=== PATIENT | female | born 1985 | race Hispanic/Latino ===

== ENCOUNTER 2017-12-23 16:44 | Emergency (ER) | payer BC, OTHER ==
[2017-12-23 17:01] VITALS: BP 121/65; PULSE 83; RESP 16; TEMP 98.2; O2SAT 98
--- NOTE | 2017-12-23 17:52 | RAD ---
PROCEDURE: Right Foot Radiographs. HISTORY: FOOT PAIN COMPARISON: None. FINDINGS: BONES: No acute fracture or destructive bony lesion identified. JOINTS: Normal. SOFT TISSUES: Normal. OTHER FINDINGS: None. IMPRESSION: No acute fracture or dislocation right foot.
--- NOTE | 2017-12-23 18:15 | ED PDOC ---
Lower Extremity Pain/Injury Time Seen by Provider: 12/23/17 17:07 Chief Complaint (Nursing): Lower Extremity Problem/Injury Chief Complaint (Provider): Right foot pain History Per: Patient History/Exam Limitations: no limitations Onset/Duration Of Symptoms: Days Current Symptoms Are (Timing): Still Present Additional Complaint(s): 32 y/o female presents to the ED for right foot pain. Patient reports back in August 2017 she was diagnosed with a stress fracture. She was training for a marathon when the injury occurred. After treating the injury she states she hasn 't had any symptoms until a few days ago while running on a treadmill. She reports feeling a sharp pain to the outside of the right foot, the same location as the previous stress fracture. Patient states it is a 4/10 when she bears weight on it. Denies any trauma, swelling, calf pain, SOB, chest pain, fever, chills, nausea, vomiting, or abdominal pain. Of note, she also complains of a slight sore throat and cough since this morning. Patient took no medications prior to arrival in ED. 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 PMD: unsure, in [place] LMP: 12/02/2017 Past Medical History Reviewed: Historical Data, Nursing Documentation, Vital Signs Vital Signs: Last Vital Signs Temp 98.2 F 12/23/17 16:57 Pulse 83 12/23/17 16:57 Resp 16 12/23/17 16:57 BP 121/65 12/23/17 16:57 Pulse Ox 98 12/23/17 16:57 - Medical History PMH: No Chronic Diseases - Surgical History Surgical History: No Surg Hx - Family History Family History: States: No Known Family Hx - Social History Current smoker - smoking cessation education provided: No Ex-Smoker (has not smoked in the last 12 months): No Alcohol: Social Drugs: Denies - Home Medications Home Medications: Ambulatory Orders Medication Instructions Recorded Naproxen 500 mg PO BID #20 tab 12/23/17 - Allergies Allergies/Adverse Reactions: Allergies Allergy/AdvReac Type Severity Reaction Status Date / Time No Known Allergies Allergy Verified 12/23/17 16:57 Review of Systems ROS Statement: Except As Marked, All Systems Reviewed And Found Negative Constitutional: Negative for: Fever, Chills ENT: Positive for: Throat Pain. Negative for: Ear Pain Cardiovascular: Negative for: Chest Pain Respiratory: Positive for: Cough Gastrointestinal: Negative for: Nausea, Vomiting, Abdominal Pain Musculoskeletal: Positive for: Foot Pain (right). Negative for: Other (no swelling) Physical Exam - Reviewed Nursing Documentation Reviewed: Yes Vital Signs Reviewed: Yes - Physical Exam Comments: GENERAL APPEARANCE: Patient is awake, alert, oriented x 3, in no acute distress. Resting comfortably. SKIN: Warm, dry; (-) cyanosis. NECK: Supple, FROM ENMT: Mucous membranes moist. Airway patent: (-) stridor. Pharynx: clear, uvula is midline (-) swelling, (+) mild erythema, (-) exudate. TMs: nonbulging, nonerythematous bilaterally. Nares patent. CHEST AND RESPIRATORY: Clear to auscultation (-) wheezing; (-) rales, (-) rhonchi; breath sounds equal bilaterally. HEART AND CARDIOVASCULAR: (-) irregularity; (-) murmur, (-) gallop. LOWER EXTREMITY: (+)tenderness to the lateral aspect of the dorsum right mid foot and proximal 4th and 5th metatarsals (-) swelling (-) ecchymosis (-) erythema (-) palpable bony deformity. FULL ROM of the foot and ankle. NV intact , cap refill <2 seconds. Sensation intact throughout. Remainder of lower extremity: Nontender with FROM. (+) distal pulses - ECG O2 Sat by Pulse Oximetry: 98 (RA) Pulse Ox Interpretation: Normal Medical Decision Making Medical Decision Making: Time: 16:57 Impression: Acute foot pain, sore throat, cough Plan: * Podiatry consult * Right foot x-ray * Rapid Strep * Throat culture * Ibuprofen 600mg PO Right foot x-ray FINDINGS: BONES: No acute fracture or destructive bony lesion identified. JOINTS: Normal. SOFT TISSUES: Normal. OTHER FINDINGS: None. IMPRESSION: No acute fracture or dislocation right foot. Dr. Stephen Oseguera, podiatry resident, was called at 6:00 PM. Case discussed, agreeable to evaluation in ED. 18:20 Podiatry resident at bedside. See consult note. 6533 Rapid Strep: Negative Per podiatry evaluation, patient stable for outpatient follow up with logistics engineering manager. On re-evaluation, patient reports improvement of symptoms. On exam, patient remains AAOx3, in no acute distress. On exam, neck is supple, lungs CTA, cardiac RRR, neuro exam shows no focal findings. VSS, stable for discharge. RICE encouraged. Diagnostic results d/w the patient in great detail. Dx of acute foot pain, sore throat/viral pharyngitis, cough d/w the patient. Based on history, exam and diagnostic results plan will be for discharge and outpatient follow up. Advised to follow up with primary care physician/podiatry in 1-2 days without fail. Advised to take medication as prescribed. Return to the emergency room at any time for any new or worsening symptoms. Patient states she fully agrees with and understands discharge instructions. States that she agrees with the plan and disposition. Verbalized and repeated discharge instructions and plan. I have given the patient opportunity to ask any additional questions. Scribe Attestation: Documented by Shola Murillo acting as a scribe Holly Fox PA-C. MD Scribe Attestation: All medical record entries made by the Scribe were at my direction and personally dictated by me. I have reviewed the chart and agree that the record accurately reflects my personal performance of the history, physical exam, medical decision making, and the department course for this patient. I have also personally directed, reviewed, and agree with the discharge instructions and disposition. Disposition - Clinical Impression Clinical Impression: Foot pain, Pharyngitis, Sore throat, Cough - Patient ED Disposition Is Patient to be Admitted: No Counseled Patient/Family Regarding: Studies Performed, Diagnosis, Need For Followup, Rx Given - Disposition Referrals: Ashish Winter DPM [Staff Provider] - Disposition: Routine/Home Disposition Time: 18:48 Condition: IMPROVED Additional Instructions: FOLLOW UP WITH PMD/PODIATRY FOR FURTHER EVALUATION. RETURN TO ED WITH ANY NEW OR WORSENING SYMPTOMS. Prescriptions: Naproxen 500 mg PO BID #20 tab Instructions: Viral Pharyngitis, Sore Throat in Adults, Foot Sprain (DC), Cough in Adults Forms: [facility] (Yemeni) Print Language: SPANISH - POA Present On Arrival: None Results - Lab Results Lab Results: 12/23/17 17:41 Grp A Beta Strep Ag Negative
--- NOTE | 2017-12-23 19:00 | CP.PCM.CON ---
History of Present Illness - History of Present Illness History of Present Illness: Podiatry Consult Note for Dr. Winter 32F with no PMHx seen in ED complaining of right foot pain. Patient states that about five months ago she was treated for a stress fracture of her right foot by Dr. Winter. Patient states that after treatment she had no pain in the foot until last week. She took an exercise class and began to notice discomfort in the same area a day or two later. Patient states that she is able to walk without any pain and only experiences 4/10 pain when exercising or undergoing other strenuous activities. She also states that she has a wedding to go to this weekend and just wanted to double check that nothing was truly broken in her foot beforehand. Patient denies any bruising, swelling, or acute trauma to the area. Patient is AAO x 3 and NAD at time of visit. Denies any further pedal complaints at this time. Denies any recent N/V/F/C/CP/SOB/D/posterior calf pain when squeezed. Review of Systems - Review of Systems All systems: reviewed and no additional remarkable complaints except Review of Systems: as per HPI Past Patient History - Past Social History Alcohol: Social Drugs: Denies - PSYCHIATRIC Hx Substance Use: No Meds Allergies/Adverse Reactions: Allergies Allergy/AdvReac Type Severity Reaction Status Date / Time No Known Allergies Allergy Verified 12/23/17 16:57 Physical Exam - Constitutional Appears: Well, Non-toxic, No Acute Distress - Head Exam Head Exam: ATRAUMATIC, NORMOCEPHALIC - Extremities Exam Additional comments: RLE focused exam: Vasc: DP/PT pulses fully palpable 2/4 b/l. Skin temperature warm to warm from proximal to distal WNL. CFT < 3 seconds to all digits b/l. No edema noted to any part of foot or ankle Neuro: Epicritic and protective sensation grossly intact b/l Derm: No open lesions, wounds, maceration, xerosis, abnormal pigmentation or abnormal growths noted b/l MSK: Unable to illicit and pain with palpation to right foot. No gross deformities noted. MMT 5/5 in all major muscle groups. ROM WNL to all major joints - Neurological Exam Neurological exam: Alert, Oriented x3 - Psychiatric Exam Psychiatric exam: Normal Affect, Normal Mood Results - Vital Signs Recent Vital Signs: Last Vital Signs Temp 98.2 F 12/23/17 16:57 Pulse 83 12/23/17 16:57 Resp 16 12/23/17 16:57 BP 121/65 12/23/17 16:57 Pulse Ox 98 12/23/17 18:54 - Labs Labs: Laboratory Results - last 24 hr 12/23/17 17:41 Grp A Beta Strep Ag Negative Assessment & Plan - Assessment and Plan (Free Text) Assessment: 32F seen in ED for possible stress fracture of right calcaneus Plan: Patient seen and evaluated Plan discussed with attending Dr. Moy Barnard foot xray impression: No acute fracture or dislocation of right foot. My impression: Minimal callous formation noted to anterior lateral portion of calcaneus, most likely secondary to previously healed stress fracture in that area Patient advised to avoid high heels and strenuous activity at all times while discomfort is still present Advised to ice and elevate foot if strenuous activity does occur, with NSAID use as needed Patient advised to by OTC orthotics and instructed on the proper way to break them in Patient advised to follow up with a [employer] founder if discomfort is not resolved or worsens over next 7-10 days Patient demonstrated good understanding - Date & Time Date: 12/23/17 Time: 19:06
== END 2017-12-23 19:03 | disposition home or self-care (01) ==
LOC: H.ER 16:44
DX: J02.9 Acute pharyngitis, unspecified (principal); M79.671 Pain in right foot; Z87.891 Personal history of nicotine dependence